=== PATIENT | female | born 1990 | race Caucasian/White ===

== ENCOUNTER 2021-01-11 13:52 | Emergency (ER) | payer MEDICAID ==
[~2021-01-11] VITALS: Ht 154.9 cm; Wt 68.2 kg
[2021-01-11 15:04] LABS: CLARITY,URINE CLOUDY (Clear); COLOR,URINE YELLOW (Yellow); GLUCOSE, URINE NEGATIVE (Neg); KETONES,URINE NEGATIVE (Neg); LEUKOCYTE ESTERASE ,URINE NEGATIVE (Neg); NITRITES, URINE NEGATIVE (Neg); OCCULT BLOOD,URINE NEGATIVE (Neg); PH,URINE 5.5 (4.8-8.0); PROTEIN,URINE NEGATIVE (Neg); UROBILINOGEN,URINE 0.2 E.U/dL (0.2-1.0)
[2021-01-11 15:09] LABS: URINE HCG NEGATIVE (NEG)
[2021-01-11 15:11] LABS: UA COLLECTION TYPE CLN CATCH MIDSTREAM
[2021-01-11 15:12] LABS: MUCUS STRANDS MANY /LPF (Neg); SQUAMOUS EPITHELIAL CELL,UR MANY /LPF (FEW)
[2021-01-11 15:13] LABS: BACTERIA,URINE 2+ /HPF (Neg); RBC,URINE 0-2 /HPF (0-2); WBC,URINE 0-4 /HPF (0-4)
[2021-01-11 15:13] LABS: ALBUMIN 4.2 G/DL (3.4-5.0); ANION GAP 13 (8-16); BLOOD UREA NITROGEN 5 MG/DL (7-18); CALCIUM 8.9 MG/DL (8.5-10.1); CHLORIDE 106 MMOL/L (99-107); CREATININE 0.71 MG/DL (0.40-0.90); GLUCOSE 100 MG/DL (70-104); POTASSIUM 3.5 MMOL/L (3.5-5.1); SODIUM 142 MMOL/L (135-145); TOTAL CARBON DIOXIDE 23.3 MMOL/L (24-32); eGFR > 90 ML/MIN
[2021-01-11 15:40] LABS: BASOPHILS % (AUTO) 0.4 % (0-1); EOSINOPHILS # (AUTO) 0.2 X10'3 (0-0.9); EOSINOPHILS % (AUTO) 2.3 % (0-6); HEMATOCRIT 42.6 % (35.0-45.0); HEMOGLOBIN 14.6 g/dl (12.0-16.0); LYMPHOCYTES # (AUTO) 2.3 X10'3 (1.1-4.8); LYMPHOCYTES % (AUTO) 25.6 % (21-51); MEAN CORPUSCULAR HEMOGLOBIN 31.3 PG (27.0-31.0); MEAN CORPUSCULAR HGB CONC 34.3 g/dL (33.0-36.5); MEAN CORPUSCULAR VOLUME 91.2 FL (78-98); MONOCYTES # (AUTO) 0.4 X10'3 (0-0.9); MONOCYTES % (AUTO) 4.4 % (2-12); NEUTROPHILS % (AUTO) 67.3 % (42-75); PLATELET COUNT 292 X10'3 (140-440); RED BLOOD COUNT 4.67 X10'6 (4.20-5.60); RED CELL DISTRIBUTION WIDTH 12.7 % (11.5-14.5); WHITE BLOOD COUNT 8.9 X10'3 (4.5-11.0)
[2021-01-11 15:48] LABS: ALANINE AMINOTRANSFERASE 19 U/L (12-78); ALBUMIN/GLOBULIN RATIO 1.3 (1.1-1.5); ALKALINE PHOSPHATASE 59 IU/L (46-116); ASPARTATE AMINO TRANSFERASE 15 U/L (10-37); BILIRUBIN,TOTAL 0.4 MG/DL (0.1-1.0); LIPASE 87 U/L (73-393); TOTAL PROTEIN 7.5 G/DL (6.4-8.2)
[2021-01-11] MEDS ORDERED: normal saline 1000ML IV soln IVB ONE (21:15)
[2021-01-11] MEDS ORDERED: proCHLORperazine 10 MG/2 ml inj IV ONE (21:15)
[2021-01-11] MEDS ORDERED: magnesium citrate 296ml oral solution PO ONE (22:20)
--- NOTE | 2021-01-11 22:41 | NUR ---
EDMUNDO BERRY WITH RECTAL EXAMINE AND HEMOCULT WAS NEGATIVE
[2021-01-11 22:57] LABS: OCCULT BLOOD STOOL NEGATIVE (Neg)
[2021-01-11 23:39] VITALS: BP 125/89
== END 2021-01-11 23:43 | disposition home or self-care (01) ==
LOC: ER 13:53
DX: K59.00 Constipation, unspecified (principal)
CPT/HCPCS: 36415; 74176; 80053; 81001; 81025; 82272; 83690; 85025; 96361; 96374; 99284; J0780; J7030

== ENCOUNTER 2025-07-20 19:12 | Emergency (ER) | payer MEDICAID ==
[~2025-07-20] VITALS: Ht 154.9 cm; Wt 61.4 kg
[2025-07-20 19:52] VITALS: BP 115/83; PULSE 79; O2SAT 99
--- NOTE | 2025-07-20 20:08 | Physician Documentation ---
History of Present Illness ~ Chief Complaint: Neck pain Stated Complaint: NECK PAIN Time Seen by MD: 19:54 HPI This 34 year old female patient presents with the acute onset cervical pain. Pain occurred without acute injury. States she does look at her phone for extended periods of time. 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 Denies any incontinence fevers or weakness in various limbs. Day of Onset: Jul 20, 2025 Medication Reconciliation Allergies: Coded Allergies: Penicillins (Verified Allergy, Unknown, 01/11/21) aspirin (Verified Allergy, Unknown, 01/11/21) Past Medical History Past Medical History: No Pertinent History Past Surgical History: noncontributory Alcohol Use: None Drug Use: none Lives In: Home Review of Systems All Other Systems at this time: Reviewed and Negative ROS As stated above in the HPI, otherwise all systems are reviewed and negative. Physical Exam Vital Signs: Heart Rate: 79, Respiratory Rate: 16, BP: 115/83, Pulse Oximetry: 99, Weight: 61.360 Physical Exam Neck: Full range of motion. tender to right trapezius via palpation Respiratory: Lungs clear, no respiratory distress. Extremities: Normal range of motion, no deformity. Neurologic: Oriented x4. Psychiatric: Normal mood and affect. Progress Results/Orders Results/Orders Completed Orders - DEWAYNE GRECO NP Ketorolac Trometh 30mg/Ml Vial (Toradol (07/20/25 19:55) Vital Signs 07/20/25 19:52 Pulse 79 Resp 16 B/P (MAP) 115/83 Pulse Ox 99 Medical Decision Making Additional information obtaine: old records Findings Patient presents with a suspected cervical sprain secondary to habitual phone use. She does not present in any acute distress and has no acute injury. He is neurologically intact with normal motor function. Treat her for pain and inflammation and discharge her for outpatient therapy Differential Dx:Considerations: Include: Cervical muscle spasm, Torticollis Departure Disposition: HOME / SELF CARE / HOMELESS Impression: Primary Impression: Neck pain Additional Impression: Strain of neck muscle Condition: Improved Discharge Instructions: Cervical Sprain Referrals: NO PRIMARY CARE PROVIDER (PCP) Prescriptions Cyclobenzaprine HCl (Cyclobenzaprine HCl) 10 Mg Tablet 1 TAB PO Q8H for muscle spasms for 10 Days, #30 TAB Prov: DEWAYNE GRECO NP 12/10/25 Naproxen (Naproxen) 500 Mg Tablet 1 TAB PO Q12H, #20 TAB Prov: DEWAYNE GRECO NP 07/20/25 Education Educated: Patient Educated regarding: diagnosis Signature Scribe Signature: j Attestation: Scribed for Dewayne Greco Collaborative Physician by Dewayne Greco - TEGAN . 07/20/25 20:07 DEWAYNE GRECO NP Jul 20, 2025 20:08
[2025-07-20] MEDS ORDERED: CYCL-394 PO (20:10)
[2025-07-20] MEDS ORDERED: NAPR-56 PO (20:10)
[2025-07-20 20:15] VITALS: RESP 16
[2025-07-20] MEDS: ketorolac trometh 30MG/ML vial 30 MG/ML VIAL IM ONE (20:15)
== END 2025-07-20 20:26 | disposition home or self-care (01) ==
LOC: ER 19:12
DX: S16.1XXA Strain of muscle, fascia and tendon at neck level, initial encounter (principal); Z88.0 Allergy status to penicillin; Z88.6 Allergy status to analgesic agent; X58.XXXA Exposure to other specified factors, initial encounter; Y93.89 Activity, other specified; Y92.89 Other specified places as the place of occurrence of the external cause; Y99.8 Other external cause status
CPT/HCPCS: 96372; 99283; J1885